=== PATIENT | male | born 1965 | race African-American/Black ===

== ENCOUNTER 2016-04-30 17:13 | Emergency (ER) | payer OTHER ==
[~2016-04-30] VITALS: Ht 167.6 cm; Wt 81.8 kg
[~2016-04-30 17:13] MED LIST: ADDERALL30 MG PO; CYTOTEC200 MCG PO; DEPAKOTE500 MG PO; LANTUS 10100 UNITS/ SC; LANTUS 3 M100 UNITS1 SC; LIPITOR20 MG PO; LYRICA100 MG PO; PERCOCET 10/1 TABLET PO; PERCOCET 5/31 TABLET PO; PERCOCET 7.51 TABLET PO; PRILOSEC40 MG PO; THORAZINE50 MG PO; TRILAFON8 MG PO; VENTOLIN HFA18 GM IH; VIMPAT100 MG PO; VIMPAT50 MG PO; VOLTAREN75 MG PO; ZESTRIL2.5 MG PO
[2016-04-30 18:17] LABS: POINT-OF-CARE METER ID UU14100415; POINT-OF-CARE USER ID STWBNM43
[2016-04-30 18:32] LABS: HEMATOCRIT 42.6 % (38.0-50.0); MCH 30.3 PG (29.0-34.0); MCV 86.6 FL (86-99); PLATELET COUNT 178 K/uL (156-360); RBC DIS.WIDTH-CV 12.6 % (11.8-14.6); RBC DIS.WIDTH-SD 39.1 % (39-53); RED BLOOD COUNT 4.92 M/uL (4.00-5.50); WHITE BLOOD COUNT 11.8 K/uL (4.1-10.2)
[2016-04-30 18:42] LABS: CHLORIDE 109 mEq/L (99-109); POTASSIUM 3.8 mEq/L (3.7-5.4); SODIUM 138 mEq/L (136-147)
[2016-04-30 18:44] LABS: GLUCOSE 194 mg/dL (70-99)
[2016-04-30 18:45] LABS: ANION GAP 9 MEQ/L (2-14)
[2016-04-30 18:48] LABS: GFR ESTIMATE (CALCULATED) > 59 mL/min/
[2016-04-30 18:49] LABS: UREA NITROGEN (BUN) 11 mg/dL (9-23)
[2016-04-30] MEDS ORDERED: MOXEZA3 ML LEFT EYE (22:21)
[2016-04-30 23:11] VITALS: BP 123/63
== END 2016-04-30 23:12 | disposition home or self-care (01) ==
LOC: EME 17:13
PROVIDERS: Emergency Medicine
DX: G40.909 Epilepsy, unspecified, not intractable, without status epilepticus (principal); S05.00XA Injury of conjunctiva and corneal abrasion without foreign body, unspecified eye, initial encounter; V49.9XXA Car occupant (driver) (passenger) injured in unspecified traffic accident, initial encounter; Z91.14 Patient's other noncompliance with medication regimen; E11.9 Type 2 diabetes mellitus without complications; Z79.4 Long term (current) use of insulin; G89.29 Other chronic pain; Z79.891 Long term (current) use of opiate analgesic; F17.200 Nicotine dependence, unspecified, uncomplicated
CPT/HCPCS: 70450; 74176; 80048; 80164; 81003; 82948; 85027; 93005; 99281; 99285; J2060; J7030

== ENCOUNTER 2017-10-15 14:16 | Emergency (ER) | payer OTHER ==
[~2017-10-15] VITALS: Ht 167.6 cm; Wt 73.0 kg
[~2017-10-15 14:16] MED LIST changes: +MOXEZA3 ML LEFT EYE
[2017-10-15 14:57] LABS: APPEARANCE CLEAR ((CLEAR)); BILIRUBIN NEGATIVE; BLOOD NEGATIVE; COLOR YELLOW ((YELLOW)); GLUCOSE (STRIP) >=500; KETONES 5; LEUKOCYTES TRACE; NITRITE NEGATIVE; PROTEIN (STRIP) NEGATIVE; SPECIFIC GRAVITY 1.036 (1.000-1.030)
[2017-10-15 15:04] LABS: BACTERIA NONE SEEN /HPF; EPITHELIAL CELLS NONE SEEN /HPF; MUCUS TRACE /LPF; WHITE BLOOD CELLS 30-40 /HPF (0-5)
[2017-10-15 16:01] LABS: MCH 30.6 PG (29.0-34.0); MCHC 34.2 G/DL (30.0-36.0); MCV 89.4 FL (86-99); PLATELET COUNT 209 K/uL (156-360); RBC DIS.WIDTH-CV 12.8 % (11.8-14.6); RBC DIS.WIDTH-SD 42.2 % (39-53); RED BLOOD COUNT 4.25 M/uL (4.00-5.50); WHITE BLOOD COUNT 9.2 K/uL (4.1-10.2)
[2017-10-15 16:02] LABS: CARBON DIOXIDE (BICARBONATE) 31.9 MEQ/L (20-31)
[2017-10-15 16:08] LABS: ALBUMIN 3.7 g/dL (3.2-4.8)
[2017-10-15 16:09] LABS: CHLORIDE 102 mEq/L (99-109); POTASSIUM 4.5 mEq/L (3.7-5.4); SODIUM 138 mEq/L (136-147)
[2017-10-15 16:11] LABS: GLUCOSE 325 mg/dL (70-99); TOTAL PROTEIN 7.1 g/dL (6.4-8.3)
[2017-10-15 16:13] LABS: TOTAL BILIRUBIN 0.4 mg/dL (0.0-1.0)
[2017-10-15 16:14] LABS: ALKALINE PHOSPHATASE 121 IU/L (3-129)
[2017-10-15 16:15] LABS: GFR ESTIMATE (CALCULATED) > 59 mL/min/ (58.99-99999)
[2017-10-15 16:16] LABS: AST (GOT) 11 IU/L (2-34); UREA NITROGEN (BUN) 12 mg/dL (9-23)
[2017-10-15 16:17] LABS: ALT (GPT) 35 IU/L (3-49)
[2017-10-15 19:17] VITALS: BP 122/57
== END 2017-10-15 20:21 | disposition left against medical advice (07) ==
LOC: EME 14:16
PROVIDERS: Physician Assistant
DX: N45.4 Abscess of epididymis or testis (principal); E11.9 Type 2 diabetes mellitus without complications; Z79.4 Long term (current) use of insulin; Z90.49 Acquired absence of other specified parts of digestive tract; F90.9 Attention-deficit hyperactivity disorder, unspecified type; Z85.07 Personal history of malignant neoplasm of pancreas; F20.9 Schizophrenia, unspecified; Z88.6 Allergy status to analgesic agent; F17.200 Nicotine dependence, unspecified, uncomplicated
CPT/HCPCS: 74177; 76870; 80053; 81003; 82010; 82803; 83605; 85027; 87040; 87086; J2270; J7030